=== PATIENT | male | born 1965 | race Caucasian/White ===

== ENCOUNTER 2019-12-22 14:25 | Observation (INO) ==
[2019-12-22] MEDS ORDERED: Aspirin 81 MG TAB.CHEW PO ONE (15:01)
[2019-12-22 15:15] LABS: Basophils % 0.5 %; Eosinophils # 0.2 K/mcL (0.0-0.6); Eosinophils % 2.7 %; Hematocrit 49.4 % (37.5-50.1); Immature Granulocytes % 0.3 % (0-4); Lymphocytes # 2.3 K/mcL (0.6-4.6); Lymphocytes % 29.3 %; Mean Corpuscular HGB Conc 34.4 g/dL (31.6-35.5); Mean Corpuscular Hemoglobin 31.9 pg (28.0-33.3); Mean Corpuscular Volume 92.7 fL (83.0-100.0); Mean Platelet Volume 9.4 fL (9.4-12.4); Monocytes # 0.9 K/mcL (0.0-1.3); Monocytes % 11.3 %; Neutrophils # 4.4 K/mcL (1.6-8.9); Platelet Count 253 K/mcL (140-400); Red Blood Count 5.33 M/mcL (4.19-5.50); Segmented Neutrophils % 55.9 %; White Blood Count 7.8 K/mcL (4.3-11.1)
[2019-12-22 15:24] LABS: INR 1.1; Prothrombin Time 12.7 Seconds (9.4-12.1)
[2019-12-22 15:26] LABS: Activated Partial Thrombo Time 32.7 Seconds (26.0-36.0)
[2019-12-22 15:42] LABS: BUN/Creatinine Ratio 15 (6-26); Blood Urea Nitrogen 14 mg/dL (6-20); Calcium 9.8 mg/dL (8.6-10.3); Carbon Dioxide 26 mEq/L (23-29); Chloride 104 mEq/L (98-107); Glucose 81 mg/dL (70-105); Osmolality,Calculated 284 (280-300); Potassium 4.1 mEq/L (3.5-5.1); Sodium 137 mEq/L (136-145); Troponin I < 0.03 ng/mL (< 0.04); eGFR For African Americans > 60 (> 60); eGFR For Non-African Americans > 60 (> 60)
[2019-12-22] MEDS: Nitroglycerin 0.4 MG TAB.SUBL SL PRN ×2 (16:40→16:45)
[2019-12-22] MEDS ORDERED: Ondansetron 4 MG/2 ML VIAL IVP PRN (16:52)
[2019-12-22 17:47] LABS: BUN/Creatinine Ratio 16 (6-26); Blood Urea Nitrogen 14 mg/dL (6-20); Carbon Dioxide 25 mEq/L (23-29); Chloride 107 mEq/L (98-107); Glucose 96 mg/dL (70-105); Osmolality,Calculated 280 (280-300); Potassium 4.1 mEq/L (3.5-5.1); Sodium 135 mEq/L (136-145); eGFR For African Americans > 60 (> 60); eGFR For Non-African Americans > 60 (> 60)
[2019-12-22] MEDS: *HR* Heparin 5,000 UNIT/ML VIAL SQ SCH (21:03)
[2019-12-22] MEDS ORDERED: Acetaminophen 325 MG TABLET PO ONE (21:33)
[2019-12-23 03:48] LABS: Estimated Average Glucose 123 mg/dl; Hemoglobin A1C 5.9 %
[2019-12-23 03:49] LABS: Chol/HDL Ratio 7.4 (0-4.9)
[2019-12-23 04:03] LABS: Thyroid Stimulating Hormone 1.648 mcIU/mL (0.340-5.600)
[2019-12-23] MEDS: *HR* Heparin 5,000 UNIT/ML VIAL SQ SCH (05:39)
[2019-12-23] MEDS ORDERED: Regadenoson 0.4 MG/5 ML SYRINGE IVP ONE (06:14)
[2019-12-23] MEDS ORDERED: Isovue-370 500 ML BOTTLE IVP ONE (10:42)
[2019-12-23] MEDS ORDERED: 0.9 % Sodium Chloride 1,000 ML IVC SCH (11:45)
[2019-12-23] MEDS ORDERED: Nitroglycerin 0.4 MG TAB.SUBL SL PRN ×2 (12:04)
[2019-12-23 12:53] VITALS: BP 136/87
[2019-12-23] MEDS: *HR* Metoprolol 5 MG/5 ML VIAL IVP PRN ×2 (12:53→13:30)
[2019-12-23] MEDS ORDERED: Acetaminophen 325 MG TABLET PO PRN (14:02)
== END 2019-12-23 16:33 | disposition home or self-care (01) ==
LOC: 3BNU 14:25 → EMEROOARM 14:25 → SUATTDRO 17:47 → 3BNU 20:10
PROVIDERS: ADMIT Internal Medicine; ATTEND Family Medicine

== ENCOUNTER 2021-10-26 17:56 | Inpatient (IN) ==
[2021-10-26] MEDS ORDERED: Aspirin 81 MG TAB.CHEW PO ONE (18:22)
[2021-10-26 19:08] LABS: Basophils # 0.1 K/mcL (0.0-0.2); Basophils % 0.7 %; Eosinophils # 0.2 K/mcL (0.0-0.6); Eosinophils % 3.2 %; Hematocrit 50.2 % (37.5-50.1); Hemoglobin 17.1 g/dL (12.9-16.9); Immature Granulocytes % 0.3 % (0-4); Lymphocytes # 2.4 K/mcL (0.6-4.6); Lymphocytes % 31.9 %; Mean Corpuscular HGB Conc 34.1 g/dL (31.6-35.5); Mean Corpuscular Hemoglobin 31.7 pg (28.0-33.3); Mean Corpuscular Volume 93.1 fL (83.0-100.0); Mean Platelet Volume 9.2 fL (9.4-12.4); Monocytes # 0.7 K/mcL (0.0-1.3); Platelet Count 227 K/mcL (140-400); Red Blood Count 5.39 M/mcL (4.19-5.50); Segmented Neutrophils % 53.9 %; White Blood Count 7.4 K/mcL (4.3-11.1)
[2021-10-26 19:22] LABS: INR 1.1; Prothrombin Time 11.8 Seconds (9.4-12.1)
[2021-10-26 19:24] LABS: Activated Partial Thrombo Time 34.7 Seconds (26.0-36.0)
[2021-10-26 19:28] LABS: Influenza A PCR Negative (Negative); Influenza B PCR Negative (Negative); Resp. Syncytial Virus PCR Negative (Negative)
[2021-10-26 19:30] LABS: Alanine Aminotransferase 29 Units/L (7-52); Albumin 4.2 g/dL (3.5-5.7); Albumin/Globulin Ratio 1.4 (1.1-2.2); Alkaline Phosphatase 84 Units/L (34-104); Aspartate Amino Transferase 21 Units/L (13-39); BUN/Creatinine Ratio 13 (6-26); Bilirubin,Indirect 0.4 mg/dL (0.0-1.0); Bilirubin,Total 0.4 mg/dL (0.3-1.0); Blood Urea Nitrogen 12 mg/dL (6-20); Calcium 9.4 mg/dL (8.6-10.3); Carbon Dioxide 24 mEq/L (23-29); Chloride 107 mEq/L (98-107); Globulin 2.9 g/dL (2.4-3.5); Glucose 113 mg/dL (70-105); Lipase 20 Units/L (11-82); Osmolality,Calculated 285 (280-300); Potassium 3.5 mEq/L (3.5-5.1); Sodium 137 mEq/L (136-145); Total Protein 7.1 g/dL (6.4-8.9); Troponin I 0.39 ng/mL (< 0.04); eGFR For African Americans > 60 (> 60); eGFR For Non-African Americans > 60 (> 60)
[2021-10-26 19:41] LABS: SARS-CoV-2 by PCR (In House) Negative (Negative)
[2021-10-26] MEDS ORDERED: *HR* Heparin 5,000 UNIT/ML VIAL IVP PRN ×2 (20:32)
[2021-10-26] MEDS ORDERED: *HR* Heparin 5,000 UNIT/ML VIAL IVP ONE (20:32)
[2021-10-26] MEDS ORDERED: Heparin 25,000UNIT/250ML 1/2NS 25,000 UNIT/250 ML IV.SOLN IVC SCH (20:45)
[2021-10-26] MEDS ORDERED: Ondansetron ODT 4 MG TAB.RAPDIS SL PRN (21:25)
[2021-10-26] MEDS ORDERED: Naloxone 0.4 MG/ML INJ IVP PRN (21:25)
[2021-10-26] MEDS ORDERED: Melatonin 3 MG TABLET PO PRN (21:25)
[2021-10-26] MEDS ORDERED: Perflutren Lipid Microsphere 1.3 ML in 0.9 % Sodium Chloride 8.7 ML IVP PRN (22:56)
[2021-10-26 23:08] LABS: Estimated Average Glucose 114 mg/dl; Hemoglobin A1C 5.6 %
[2021-10-27 04:30] LABS: Hematocrit 48.7 % (37.5-50.1); Hemoglobin 16.5 g/dL (12.9-16.9); Mean Corpuscular HGB Conc 33.9 g/dL (31.6-35.5); Mean Corpuscular Hemoglobin 31.5 pg (28.0-33.3); Mean Corpuscular Volume 92.9 fL (83.0-100.0); Mean Platelet Volume 9.6 fL (9.4-12.4); Platelet Count 239 K/mcL (140-400); Red Blood Count 5.24 M/mcL (4.19-5.50); Red Cell Distribution Width 13.1 % (11.5-14.5); White Blood Count 7.7 K/mcL (4.3-11.1)
[2021-10-27 04:50] LABS: Blood Urea Nitrogen 11 mg/dL (6-20); Calcium 9.1 mg/dL (8.6-10.3); Carbon Dioxide 23 mEq/L (23-29); Chloride 107 mEq/L (98-107); Glucose 152 mg/dL (70-105); Magnesium 2.1 mg/dL (1.6-2.6); Osmolality,Calculated 288 (280-300); Phosphorous 2.5 mg/dL (2.7-4.5); Potassium 3.6 mEq/L (3.5-5.1); Sodium 138 mEq/L (136-145)
[2021-10-27 04:54] LABS: Troponin I 3.85 ng/mL (< 0.04)
[2021-10-27 05:28] LABS: BUN/Creatinine Ratio 12 (6-26); eGFR For African Americans > 60 (> 60); eGFR For Non-African Americans > 60 (> 60)
[2021-10-27] MEDS: Aspirin 81 MG TAB.CHEW PO SCH (09:16)
[2021-10-27] MEDS ORDERED: *HR* Midazolam HCl 2 MG/2 ML VIAL ONE ×2 (09:37→10:05)
[2021-10-27] MEDS ORDERED: 0.9 % Sodium Chloride 2,000 ML ONE (09:37)
[2021-10-27] MEDS ORDERED: *HR* FentaNYL (PF) 100 MCG/2 ML VIAL ONE (09:37)
[2021-10-27] MEDS ORDERED: Heparin 1,000 UNITS/500 mL 500 ML ONE (09:38)
[2021-10-27] MEDS ORDERED: ISOVUE-370 200 ML INFUS..BTL ONE (09:38)
[2021-10-27] MEDS ORDERED: *HR* Heparin 10,000 UNIT/10 ML VIAL ONE ×2 (09:38→10:09)
[2021-10-27] MEDS ORDERED: Nitroglycerin 1,000 MCG/5 ML VIAL IV ONE (09:38)
[2021-10-27] MEDS: lisinopriL 5 MG TABLET PO SCH (09:40)
[2021-10-27] MEDS ORDERED: *HR* Atropine Sulfate 1 MG/10 ML SYRINGE ONE (10:09)
[2021-10-27] MEDS ORDERED: Tirofiban 12.5 MG/250ML 12.5 MG/250 ML BAG ONE ×2 (10:16→15:54)
[2021-10-27] MEDS ORDERED: Acetaminophen 325 MG TABLET PO ONE (13:36)
[2021-10-27] MEDS: carvediloL 6.25 MG TABLET PO SCH (16:51)
[2021-10-28 05:54] LABS: Hematocrit 48.9 % (37.5-50.1); Hemoglobin 16.7 g/dL (12.9-16.9)
[2021-10-28 06:16] LABS: BUN/Creatinine Ratio 10 (6-26); Blood Urea Nitrogen 9 mg/dL (6-20); Calcium 9.3 mg/dL (8.6-10.3); Carbon Dioxide 23 mEq/L (23-29); Chloride 105 mEq/L (98-107); Glucose 116 mg/dL (70-105); Osmolality,Calculated 278 (280-300); Phosphorous 3.5 mg/dL (2.7-4.5); Potassium 4.1 mEq/L (3.5-5.1); Sodium 134 mEq/L (136-145); eGFR For African Americans > 60 (> 60); eGFR For Non-African Americans > 60 (> 60)
[2021-10-28 07:41] VITALS: BP 133/87; PULSE 64; TEMP 97.6; O2SAT 93
[2021-10-28] MEDS: carvediloL 6.25 MG TABLET PO SCH (09:05)
[2021-10-28] MEDS: Aspirin 81 MG TAB.CHEW PO SCH (09:05)
[2021-10-28] MEDS: lisinopriL 5 MG TABLET PO SCH (09:05)
== END 2021-10-28 12:02 | disposition home or self-care (01) | DRG 247 ==
LOC: 3BNU 17:56 → EMEROOARM 17:56 → SUATTDRO 21:17 → 3BNU 22:13
PROVIDERS: ADMIT Internal Medicine; ATTEND Internal Medicine